=== PATIENT | male | born 1985 | race Caucasian/White ===

== ENCOUNTER → 2017-12-10 10:13 | Outpatient (CLI) | payer OTHER, SELFPAY ==
--- NOTE | 2017-12-10 10:16 | DI.RAD.S_ITS ---
PROCEDURE: XR SHOULDER RT MIN 2V INDICATIONS: Right shoulder pain TECHNIQUE: 3 views of the shoulder were acquired. COMPARISON: None. FINDINGS: Bones: No fractures or dislocations. No suspicious bony lesions. Visualized ribs appear intact. Soft tissues: No suspicious soft tissue calcifications. IMPRESSION: Source of pain is not seen. Dictated by: Salvador Pond M.D. on 12/10/2017 at 10:55 Approved by: Salvador Pond M.D. on 12/10/2017 at 10:55
== END ==
PROVIDERS: PCP Specialist; Visit Provider Physician Assistant
DX: M25.511 Pain in right shoulder (principal)
CPT/HCPCS: 73030

== ENCOUNTER 2018-03-28 02:19 | Emergency (ER) | payer OTHER, SELFPAY ==
[2018-03-28 02:31] VITALS: BP 127/76; PULSE 80; RESP 18; TEMP 36.5; O2SAT 97; BMI 26.5
--- NOTE | 2018-03-28 02:52 | DI.RAD.S_ITS ---
PROCEDURE: XR KNEE RT 3V INDICATIONS: pain, no injury, swelling TECHNIQUE: 3 views of the knee were acquired. COMPARISON: None. FINDINGS: Bones: No fractures or dislocations. No suspicious bony lesions. Soft tissues: No joint effusion. No suspicious soft tissue calcifications. Prepatellar soft tissue swelling. IMPRESSION: 1. No fracture or dislocation. 2. Prepatellar soft tissue swelling. In the absence of trauma, this finding could be secondary to prepatellar bursitis. Dictated by: Radha Odom M.D. on 03/28/2018 at 7:51 Approved by: Radha Odom M.D. on 03/28/2018 at 7:52
--- NOTE | 2018-03-28 03:11 | ED_ITS ---
HPI - Extremity Problem General Chief complaint: Extremity Problem,Nontraumatic Stated complaint: RIGHT KNEE PAIN Time Seen by Provider: 03/28/18 02:30 Source: patient Mode of arrival: ambulatory Limitations: no limitations History of Present Illness HPI Narrative: Patient is a 32-year-old male who presents with right knee pain. 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 He does not remember injuring his knee. However throughout the day it has gotten significantly more swollen all painful and is unable to walk. He denies any fever or chills. He did recently have a small boil on his knee it was draining. That seems to have cleared. He denies any fever or chills. No numbness or tingling. He took 2 ibuprofen prior to arrival and has not helped. MD Complaint: extremity pain Related Data Home Medications Medication Instructions Recorded Confirmed ibuprofen 400 mg PO Q4-6H PRN 03/28/18 03/28/18 Allergies Allergy/AdvReac Type Severity Reaction Status Date / Time No Known Allergies Allergy Uncoded 03/28/18 02:52 Review of Systems Review of Systems All systems reviewed & are unremarkable except as noted in HPI and below Constitutional Denies chills, Denies fever(s), Denies lethargy and Denies weakness Cardiovascular Denies chest pain, Denies irregular heart rhythm, Denies lightheadedness, Denies palpitations, Denies dyspnea, Denies dyspnea on exertion and Denies orthopnea Respiratory Denies cough, Denies dyspnea, Denies dyspnea on exertion and Denies wheezing Gastrointestinal Gastrointestinal: Denies abdominal pain, Denies change in bowel habits, Denies diarrhea, Denies nausea and Denies vomiting Musculoskeletal Reports as per HPI Integumentary/Breasts Reports as per HPI Neurologic Denies weakness Endocrine Denies palpitations Allergic/Immunologic Denies wheezing FOR[facility]LY [facility] Medical History Healthy adult (Acute) Social History Smoking Status: Never smoker Exam Initial Vital Signs Initial Vital Signs: Vital Signs Temperature 97.7 F 03/28/18 02:31 Pulse Rate 80 03/28/18 02:31 Respiratory Rate 18 03/28/18 02:31 Blood Pressure 127/76 03/28/18 02:31 Pulse Oximetry 97 03/28/18 02:31 GENERAL: Well-appearing, well-nourished and in no acute distress. CARDIOVASCULAR: peripheral pulses in tact, cap refill <2 sec RESPIRATORY: No respiratory distress, speaks in full sentences without difficulty EXTREMITIES: Normal range of motion, no clubbing or edema. Neurovascularly intact A patient swelling noted on right knee bloatable sign. No significant erythema scabbed over area. Slightly warm to touch NEUROLOGICAL: Cranial nerves II through XII grossly intact. Normal gait and speech. SKIN: Warm, dry, no petechiae, no rashes or lesions. Procedures Bursa Procedure Time Out Performed: Yes Side of body: right Site of Procedure: prepatellar bursa XRAY Obtained: normal Antisepsis Used: Chlorhexidine Local Anesthetic: lidocaine 1% Amount of anesthesia used (mL): 2 Fluid obtained (mL): 0 Complications: none Additional Comments: Unsuccessful procedure. Patient was unable to hold still for the procedure due to pain Course Orders Ordered: ED Orders 03/28/18 02:52 XR knee RT 3V Stat Discontinued Medications Ketorolac Tromethamine (Toradol) 60 mg IM NOW ONE Stop: 03/28/18 03:28 Last Admin: 03/28/18 03:32 Dose: 60 mg Vital Signs - 8 hr 03/28/18 02:31 03/28/18 03:58 Temperature 97.7 F Pulse Rate 80 72 Respiratory Rate 18 18 Blood Pressure 127/76 118/69 Pulse Oximetry 97 100 MDM - Extremity (Nontraumatic) Imaging Data Right knee x-ray: Attestation: I personally reviewed and interpreted this imaging study as follows: My impression: No acute abnormality no fracture MDM Narrative Medical decision making narrative: Patient has a history of probable over use recently and this clinically seems to be bursitis. I do not believe these need to be septic. It is not significantly erythematous is healing wound I do not believe to be an issue. Patient was not able to tolerate procedure and procedure was unsuccessful. He is put in knee immobilizer. Recommended outpatient follow-up possible ortho referral/consultation Discharge Plan Departure Patient Disposition: Home Clinical Impression: Bursitis of right knee Discharge Date/Time: 03/28/18 04:00 Interventions: ED Discharge Assessment Last Done: 03/28/18 03:58 Instructions: Bursitis Activity Restrictions/Additional Instructions: *You have been diagnosed with right knee bursitis *What to do: Wear knee immobilizer as needed, elevate, ice, this may require drainage *Continue to take medications as directed Motrin 800 mg every 8 hr for 1 week with a *Follow up with your primary care provider in 2-3 days, call Orthopedics tomorrow to schedule follow-up appointment if needed *Return to ER if you should have fever, increasing redness, or any new, worsening or concerning symptoms Prescriptions: No Action ibuprofen 200 mg Tablet 400 mg PO Q4-6H PRN (Reason: Pain, Moderate) RF: 0 Referrals: [facility] [Provider Group] Patel Paul MD [Primary Care Provider] -
[2018-03-28] MEDS: KETOROLAC 60 MG/2 ML VIAL IM (03:32)
[2018-03-28 03:58] VITALS: BP 118/69; PULSE 72; RESP 18; O2SAT 100
== END 2018-03-28 04:00 | disposition home or self-care (01) ==
PROVIDERS: Emergency Provider Emergency Medicine; PCP Specialist
DX: M70.51 Other bursitis of knee, right knee (principal); Y93.01 Activity, walking, marching and hiking
CPT/HCPCS: 73562; 96372; 99283; J1885

== ENCOUNTER 2025-06-07 11:02 | Emergency (ER) | payer OTHER, SELFPAY ==
[2025-06-07 11:13] VITALS: BP 139/88; PULSE 78; RESP 16; TEMP 36.7; O2SAT 99; BMI 27.2
--- NOTE | 2025-06-07 11:19 | DI.US.S_ITS ---
PROCEDURE: US SCROTUM INDICATIONS: R testicle pain TECHNIQUE: Real-time scanning was performed of the scrotum and testicles, with image documentation. Color and pulse Doppler interrogation was performed of both testicles. COMPARISON: None. FINDINGS: Right: Testicle is normal in size at 4.1 x 2.5 x 3.1 cm, and homogenous in echotexture. Epididymis is normal in overall size and morphology. No hydrocele or varicoceles. Overlying scrotal skin is normal in thickness. Left: Testicle is normal in size at 4.0 x 2.2 x 3.1 cm, and homogeneous in echotexture. Epididymis is normal in overall size and morphology. Two small epididymal cysts measuring 2 and 3 mm. No hydrocele or varicoceles. Overlying scrotal skin is normal in thickness. Doppler: Color and pulse Doppler demonstrate normal and symmetric arterial flow in both testicles. IMPRESSION: No cause for patient's pain is identified. Normal appearance of the testes and epididymides. Dictated by: Guerrero Carty M.D. on 06/07/2025 at 11:59 Approved by: Guerrero Carty M.D. on 06/07/2025 at 12:04
--- NOTE | 2025-06-07 11:24 | ED.MALEGU ---
HPI - Male Genitourinary <Geetha Ruiz PA-C - Last Filed: 06/07/25 19:06> General Chief complaint: Urogenital-Male Stated complaint: Right testicle pain , this morning Time Seen by Provider: 06/07/25 11:19 Source: patient Mode of arrival: Ambulatory History of Present Illness HPI Narrative: 39-year-old male presents to the ED with 1 day of right-sided testicular pain. Patient has pain started this morning right after he had sexual intercourse with his . Patient states that the pain started in the right groin and retracted down into the testicle. No prior history of testicular pain. Related Data Home Medications ?Medication ?Instructions ?Recorded ?Confirmed ibuprofen 200 mg tablet 400 mg PO Q4-6H PRN Pain, Moderate 03/28/18 11/03/21 Allergies Allergy/AdvReac Type Severity Reaction Status Date / Time No Known Allergies Allergy Uncoded 06/07/25 11:13 Review of Systems <Geetha Ruiz PA-C - Last Filed: 06/07/25 19:06> Constitutional Constitutional: Denies chills, Denies fatigue, Denies fever(s), Denies frequent falls, Denies lethargy and Denies weakness Eyes Eyes: Denies change in vision, Denies eye discharge, Denies irritation and Denies loss of vision ENT Ears, Nose, Mouth, and Throat: Denies change in voice, Denies dizziness, Denies neck pain, Denies sore throat and Denies throat swelling Cardiovascular Cardiovascular: Denies chest pain, Denies irregular heart rhythm, Denies lightheadedness, Denies palpitations, Denies dyspnea, Denies dyspnea on exertion and Denies orthopnea Respiratory Respiratory: Denies cough, Denies dyspnea, Denies dyspnea on exertion and Denies wheezing Gastrointestinal Gastrointestinal: Denies abdominal pain, Denies change in bowel habits, Denies diarrhea, Denies nausea and Denies vomiting Genitourinary Genitourinary: Reports testicular pain (Right side) Musculoskeletal Musculoskeletal: Denies neck pain and Denies numbness Integumentary/Breasts Skin/Breast: Denies pruritus, Denies erythema, Denies rash and Denies wounds Neurologic Neurologic: Denies behavioral changes, Denies confusion, Denies dizziness, Denies frequent falls, Denies loss of vision, Denies numbness and Denies weakness Psychiatric Psychiatric: Denies anxiety, Denies behavioral changes, Denies confusion, Denies depression, Denies homicidal ideation and Denies suicidal ideation Endocrine Endocrine: Denies fatigue, Denies flushing and Denies palpitations Hematologic/Lymphatic Hematologic/Lymphatic: Denies easy bruising Allergic/Immunologic Allergic/Immunologic: Denies urticaria, Denies throat swelling and Denies wheezing Patient History <Geetha Ruiz PA-C - Last Filed: 06/07/25 19:06> Medical History Healthy adult Social History Smoking Status: Never smoker Smoking Status: Never smoker Alcohol type: beer Exam <Geetha Ruiz PA-C - Last Filed: 06/07/25 19:06> Narrative Exam Narrative: Const General:?cooperative, healthy appearing and comfortable [facility] Head:?normal to inspection Ears:?hearing grossly normal bilaterally Nose:?external nose normal Face and sinus:?normal facial exam and sinuses nontender Mouth:?oral mucosae normal Throat:?posterior oropharynx normal Eyes General:?appearance normal, both eyes and all related structures Neck Neck:?normal visual inspection and no lymphadenopathy noted Resp Effort & Inspection:?normal respiratory effort Auscultation:?clear to auscultation bilaterally Cardio Rate:?regular rate Rhythm:?regular rhythm Neuro General:?patient alert, patient awake and patient oriented x3 Initial Vital Signs Initial Vital Signs: Vital Signs Temperature 98.0 F 06/07/25 11:13 Pulse Rate 78 06/07/25 11:13 Respiratory Rate 16 06/07/25 11:13 Blood Pressure 139/88 06/07/25 11:13 Pulse Oximetry 99 06/07/25 11:13 Oxygen Delivery Method Room Air 06/07/25 11:13 <Juan Carlos Larsen MD - Last Filed: 06/08/25 08:11> Initial Vital Signs Initial Vital Signs: Vital Signs Temperature 98.0 F 06/07/25 11:13 Pulse Rate 78 06/07/25 11:13 Respiratory Rate 16 06/07/25 11:13 Blood Pressure 139/88 06/07/25 11:13 Pulse Oximetry 99 06/07/25 11:13 Oxygen Delivery Method Room Air 06/07/25 11:13 Course <Geetha Ruiz PA-C - Last Filed: 06/07/25 19:06> Orders Ordered: ED Orders 06/07/25 11:19 US scrotum Stat Chlamydia Gonorrhea PCR -URINE Stat Vital Signs Vital signs: Vital Signs - 8 hr 06/07/25 11:13 06/07/25 14:40 Temperature 98.0 F Pulse Rate 78 62 Respiratory Rate 16 16 Blood Pressure 139/88 117/75 Pulse Oximetry 99 99 Oxygen Delivery Method Room Air Room Air <Juan Carlos Larsen MD - Last Filed: 06/08/25 08:11> Orders Ordered: ED Orders 06/07/25 11:19 US scrotum Stat Chlamydia Gonorrhea PCR -URINE Stat Vital Signs Vital signs: Vital Signs - 8 hr 06/07/25 11:13 06/07/25 14:40 Temperature 98.0 F Pulse Rate 78 62 Respiratory Rate 16 16 Blood Pressure 139/88 117/75 Pulse Oximetry 99 99 Oxygen Delivery Method Room Air Room Air MDM - Male Genitourinary <Geetha Ruiz PA-C - Last Filed: 06/07/25 19:06> Lab Data Labs: Lab Results 06/07/25 Range/Units 12:37 Ur Chlamydia DNA (PCR) Not detected N gonorrhoeae DNA (PCR) Not detected Urine Dip Bedside Urine Glucose Negative Bedside Urine Bilirubin - Negative Bedside Urine Ketone +/- 5 Urine Specific [place] 1.03 Bedside Urine Occult Blood - Negative Bedside Urine pH 5.5 Bedside Urine Protein +/- 15 Bedside Urine Urobilinogen - Negative Bedside Urine Nitrite - Negative Bedside Urine Leukocytes - Negative Esterase MDM Narrative Medical decision making narrative: 39-year-old male presents to the ED with 1 day of right-sided testicular pain. Will obtain UA, GC, ultrasound scrotum. Ultrasound scrotum with no acute findings. There is normal appearance of the testes and epididymides. GC negative. UA is negative for infection. Also reassuring is that patient's symptoms have resolved. Recommend follow-up with PCP as soon as possible. ED return precautions discussed with patient. Patient verbalized understanding. Medical records reviewed: Yes <Juan Carlos Larsen MD - Last Filed: 06/08/25 08:11> Lab Data Labs: Lab Results 06/07/25 Range/Units 12:37 Ur Chlamydia DNA (PCR) Not detected N gonorrhoeae DNA (PCR) Not detected Urine Dip Bedside Urine Glucose Negative Bedside Urine Bilirubin - Negative Bedside Urine Ketone +/- 5 Urine Specific [place] 1.03 Bedside Urine Occult Blood - Negative Bedside Urine pH 5.5 Bedside Urine Protein +/- 15 Bedside Urine Urobilinogen - Negative Bedside Urine Nitrite - Negative Bedside Urine Leukocytes - Negative Esterase Discharge Plan Departure Patient Disposition: Home Clinical Impression: Pain in right testicle Instructions: DI for Testicular Pain Activity Restrictions/Additional Instructions: You were evaluated in the emergency department today for testicular pain. The ultrasound and urine were normal. It is also reassuring to note that your symptoms have resolved now. Please follow-up with your PCP as soon as possible. Return to the ED if you have worsening symptoms. Prescriptions: No Action ibuprofen 200 mg Tablet 400 mg PO Q4-6H PRN (Reason: Pain, Moderate) Referrals: Patel Paul MD [Primary Care Provider, Medical] Stand Alone Forms: Patient Portal/API ED Sign-out <Juan Carlos Larsen MD - Last Filed: 06/08/25 08:11> Cosign ED Attending Cosqueature Attestation: I was immediately available in the department for consultation. ?This documentation has been reviewed and I agree with assessment and plan. Supervised by Juan Carlos Larsen MD
[2025-06-07 14:15] LABS: Urine N gonorrhoeae NOT DETECTED
[2025-06-07 14:16] LABS: Urine Chlamydia NOT DETECTED
[2025-06-07 14:40] VITALS: BP 117/75; PULSE 62; RESP 16; O2SAT 99
== END 2025-06-07 14:57 | disposition home or self-care (01) ==
PROVIDERS: Emergency Provider Student in an Organized Health Care Education/Training Program; PCP Specialist
DX: N50.811 Right testicular pain (principal)
CPT/HCPCS: 76870; 81003; 87491; 87591; 93975; 99282; 99283